=== PATIENT | male | born 1940 | race Caucasian/White ===

== ENCOUNTER 2019-08-11 08:12 | Emergency (ER) | payer MEDICARE, SELFPAY ==
[2019-08-11] VITALS (11 sets, daily range): BP systolic 76–108; BP diastolic 53–68; PULSE 108–119; RESP 17–28; TEMP 37.2; O2SAT 93–100; BMI 34.9
--- NOTE | 2019-08-11 08:15 | CT_ITS ---
STUDY: CT BRAIN WITHOUT CONTRAST REASON FOR EXAM: Male, 78 years old. LT SIDED WEAKNESS, LT FACIAL DROOP, FELL OUT OF BED STRIKING LT SIDE OF HEAD, HTN,DB RADIATION DOSAGE (If Supplied By Facility): CTDIvol = ( 44.99 ) mGy, DLP = ( 796.11 ) mGycm TECHNIQUE: Transaxial CT imaging of the brain was performed without administration of intravenous contrast material. Individualized dose optimization techniques were used for this CT. COMPARISON: No relevant priors. FINDINGS: Normal soft tissue structures. Normal calvarium. There is mild cerebral atrophy with widening of the extra-axial spaces and ventricular dilatation. There are areas of decreased attenuation within the white matter tracts of the supratentorial brain, consistent with microvascular disease changes. Normal basal ganglia and thalami. Normal brainstem. There is mild cerebellar atrophy. There is no intracranial hemorrhage. There are no findings of an acute ischemic infarction. There is mucoperiosteal inflammatory disease of the paranasal sinuses consistent with moderate chronic sinusitis. CT/Brain/Head without Contrast IMPRESSION: Chronic involutional changes of the brain. N.B. : The above information has been verbally conveyed by Pio Sanchez DO to La Elizabeth MD, on 08/11/2019 08:30:49 (ET). Electronically Signed: Pio Sanchez DO at 8:32 EST Tel , Service support ,
--- NOTE | 2019-08-11 08:15 | EKG12_ITS ---
Test Reason : STROKE Blood Pressure : / mmHG Vent. Rate : 124 BPM Atrial Rate : 129 BPM P-R Int : 000 ms QRS Dur : 126 ms QT Int : 306 ms P-R-T Axes : 000 043 -21 degrees QTc Int : 439 ms Atrial fibrillation with rapid ventricular response Right bundle branch block Possible Inferior infarct , age undetermined Abnormal ECG Confirmed by LUCI ARELLANO, CLIF ([id number]), assignment editor ARPIT DALLAS ([id number]) on 08/13/2019 10:03:06 AM Referred By: AJAY Confirmed By:CLIF VERMA MD
--- NOTE | 2019-08-11 08:16 | ED.DCSUM_ITS ---
History of Present Illness Chief Complaint: Neuro S/Sx Informant: Patient, Sales Merchandising Specialist Onset: Today Narrative: Patient presents via EMS with possible stroke. Patient states that he went to get a bed this morning and fell to the floor. He states he could not use his right leg. He actually states he felt like he was weak all over, but worse in the right leg. EMS noted left facial droop that improved just prior to arrival. Patient states he went to bed at 10:30 PM last night and was okay at that time. He was not up during the night at all. - Past Medical History (1) A-fib Status: Chronic (2) Borderline diabetes Status: Chronic (3) Hypertension Status: Chronic (4) CHF (congestive heart failure) Status: Chronic (5) Sleep apnea Status: Chronic (6) BPH (benign prostatic hyperplasia) Status: Chronic (7) High cholesterol Status: Chronic (8) Hx of appendectomy Status: Chronic Past Medical History - Allergies and Home Meds Allergies/Adverse Reactions: Allergies No Known Allergies Allergy (Verified 08/11/19 08:25) Primary Care Physician: Meño Steele [Primary Care Provider] - Lives: Spouse/ Significant Other Review of Systems General: Denies: Chills, Fever Cardiovascular: Denies: Chest pain, Palpitations Respiratory: Reports: Cough Gastrointestinal: Denies: Abdominal pain, Nausea, Vomiting Genitourinary: Denies: Dysuria Musculoskeletal: Denies: Extremity Pain Skin: Denies: Rash Neurological: Denies: Headache Endocrine: Denies: Polyuria, Polydipsia Allergy: Denies: Uticaria Physical Exam Inital Vital Signs reviewed: Yes General: Well nourished, Well developed ENT: Moist mucous membranes Neck: Supple Cardiovascular: Irregular, Tachycardia Respiratory: No distress, CTA bilaterally Abdomen: Soft, Nontender Extremities: Nontender Skin: Normal color Neurological: Alert, Oriented x3, - - No facial droop noted on exam at this time. Patient has mild right lower extremity weakness with leg falling to the bed. Upper extremity examination is unremarkable. Psychological: Normal affect Diagnostic/Tx/Re-eval Impressions Brain CT 08/11/19 08:15 IMPRESSION: Chronic involutional changes of the brain. N.B. : The above information has been verbally conveyed by Pio Sanchez DO to La Elizabeth MD, on 08/11/2019 08:30:49 (ET). Electronically Signed: Pio Sanchez DO at 8:32 EST Tel , Service support , ADDENDUM: 08/11/19 0839 IMPRESSION: Chronic involutional changes of the brain. N.B. : The above information has been verbally conveyed by Pio Sanchez DO to La Elizabeth MD, on 08/11/2019 08:30:49 (ET). Electronically Signed: Pio Sanchez DO at 8:32 EST Tel , Service support , Chest X-Ray 08/11/19 08:53 IMPRESSION: Left lower lobe airspace disease with small effusion Electronically Signed: Pio Sanchez DO at 9:04 EST Tel , Service support , 08/11/19 08:15 Brain/Head without Contrast [CT] Stat 08/11/19 08:53 Chest 1 View [RAD] Stat Laboratory Results 08/11/19 08/11/19 08/11/19 08:30 08:30 08:30 WBC 16.4 H RBC 4.33 L Hgb 12.6 L Hct 39.4 L MCV 91.0 MCH 29.1 MCHC 32.0 RDW Std Deviation 45.6 H RDW Coeff of Carisa 13.6 Plt Count 170 MPV 10.8 Immature Gran % (Auto) 0.700 Neut % (Auto) 87.1 H Lymph % (Auto) 3.2 L [place] % (Auto) 8.1 Eos % (Auto) 0.7 Baso % (Auto) 0.2 Absolute Neuts (auto) 14.3 H Absolute Lymphs (auto) 0.52 L Nucleated RBC % 0 Differential Comment SCANNED PT 18.9 H INR 1.6 APTT 35.4 Sodium 141 Potassium 4.1 Chloride 105 Carbon Dioxide 29.0 Anion Gap 7 BUN 24 H Creatinine 1.15 Estim Creat Clear Calc 52.90 Est GFR (MDRD) Af Amer 79 Est GFR (MDRD) Non-Af 65 BUN/Creatinine Ratio 20.9 H Glucose 190 H Lactic Acid Calcium 8.9 Troponin I < 0.015 Urine Color Urine Clarity Urine pH Ur Specific [place] Urine Protein Urine Glucose (UA) Urine Ketones Urine Occult Blood Urine Nitrite Urine Bilirubin Urine Urobilinogen Ur Leukocyte Esterase Urine RBC Urine WBC Ur Squamous Epith Cells Urine Bacteria Urine Mucus 08/11/19 08/11/19 08:30 08:50 WBC RBC Hgb Hct MCV MCH MCHC RDW Std Deviation RDW Coeff of Carisa Plt Count MPV Immature Gran % (Auto) Neut % (Auto) Lymph % (Auto) [place] % (Auto) Eos % (Auto) Baso % (Auto) Absolute Neuts (auto) Absolute Lymphs (auto) Nucleated RBC % Differential Comment PT INR APTT Sodium Potassium Chloride Carbon Dioxide Anion Gap BUN Creatinine Estim Creat Clear Calc Est GFR (MDRD) Af Amer Est GFR (MDRD) Non-Af BUN/Creatinine Ratio Glucose Lactic Acid 2.9 H* Calcium Troponin I Urine Color Yellow Urine Clarity Clear Urine pH 6.0 Ur Specific [place] 1.015 Urine Protein 30 H Urine Glucose (UA) Normal Urine Ketones 5 H Urine Occult Blood 25 H Urine Nitrite Negative Urine Bilirubin Negative Urine Urobilinogen Normal Ur Leukocyte Esterase Negative Urine RBC 0-5 SEEN Urine WBC 0-5 SEEN Ur Squamous Epith Cells 0 SEEN Urine Bacteria 0 SEEN Urine Mucus 0 SEEN - EKG Initial EKG Interpretation: Atrial Fibrillation - A. fib RVR at 124. Right bundle branch block noted. - Medical Decision Making Just after patient returned from CAT scan I received a phone call from radiology stating the CT looked normal. Family is now at bedside and able to provide more history. They do state that patient has had a cough recently. He does have a history of A. fib and is on Eliquis. Has had no prior stroke symptoms. Son states that he received a call at 6:53 AM that the patient had fallen when attempting to get out of bed. We believe last known well to still be 10:30 PM last evening. Son does agree that the facial droop that was present at the home is now resolved. Test results are discussed with patient and family. I had an accepting physician at [facility] very quickly after patient's arrival, however family was not sure that they wanted transferred. There is a significant delay in waiting for multiple family members to arrive and make a decision. At this time they d o request transfer to [facility]. We will call [facility] and transport at this time. Patient's test results do indicate left lower lobe pneumonia. His blood pressure responds to fluid boluses. At this time his map is 77. He has been ordered Rocephin and Zithromax for his pneumonia. - Critical Care Time Critical care time (excluding procedures): 30-74 minutes ED Disposition - Plan for ED Patient: Disposition: [facility] Diagnosis: CVA (cerebral vascular accident), Pneumonia Referrals: Meño Steele [Primary Care Provider] -
[2019-08-11] MEDS: 0.9% Normal Saline 1,000 ML 100 ML IV (08:29)
[2019-08-11 08:43] LABS: Absolute Lymphocyte Count 0.52 X10^3/uL (0.83-4.51); Absolute Neutrophil Count 14.3 X10^3/uL (2.0-7.7); Basophil# 0.03 X10^3/uL; Basophil% 0.2 % (0-1); Eosinophil# 0.11 X10^3/uL; Eosinophils% 0.7 % (0-5); Hematocrit 39.4 % (40-54); Hemoglobin 12.6 g/dL (13.0-16.5); Lymphocyte # 0.52 X10^3/ul (4.0); Lymphocyte % 3.2 % (19-41); Mean Corpuscular Hgb 29.1 pg (27.0-32.0); Mean Platelet Vol. 10.8 fl (6.2-12.0); Monocyte# 1.33 X10^3/uL; Monocyte% 8.1 % (0-10); NRBC Flagged by Analyzer 0 % (0-5); Neutrophil # 14.28 X10^3/uL (2.7-7.7); Neutrophil % 87.1 % (47-70); POSITIVE DIFFERENTIAL YES; Platelet Count 170 K/mm3 (150-450); RBC Distribution Width CV 13.6 % (11.6-14.6); RBC Distribution Width SD 45.6 fl (35.1-43.9); Red Blood Count 4.33 M/mm3 (4.6-6.2); White Blood Count 16.4 K/mm3 (4.4-11.0)
[2019-08-11 08:44] LABS: Differential Indicated SCAN CRITERIA MET
[2019-08-11 08:48] LABS: International Normalized Ratio 1.6; Prothrombin Time (Protime)PT. 18.9 SECONDS (11.7-14.9)
[2019-08-11 08:49] LABS: Partial Thromboplast Time 35.4 Seconds (24.1-36.2)
[2019-08-11 08:53] LABS: Bacteria 0 SEEN /hpf (None Seen); Mucous, Urine 0 SEEN /hpf (<or=2+); Squamous Epithelial Cells - UA 0 SEEN /hpf (0-5)
--- NOTE | 2019-08-11 08:53 | RAD_ITS ---
STUDY: X-RAY CHEST REASON FOR EXAM: Male, 78 years old. SOB TECHNIQUE: Single AP portable view of the chest. COMPARISON: None. FINDINGS: Lungs are adequately inflated. Left lower lobe airspace disease is noted with small effusion. There is mild cardiac enlargement. Normal mediastinum and jonny. Normal visualized pulmonary arteries. Normal visualized aortic arch and descending thoracic aorta. Normal visualized thoracic spine. Normal visualized ribs, clavicles, and shoulders. There is no demonstrated abnormality of the visualized soft tissue structures of the upper abdomen. RAD/Chest 1 View IMPRESSION: Left lower lobe airspace disease with small effusion Electronically Signed: Pio Sanchez DO at 9:04 EST Tel , Service support ,
[2019-08-11 08:55] LABS: Color, Urine Yellow (Yellow); Glucose, Dipstick Normal (Normal); Ketone-Dipstick 5 mg/dl (Negative); Leukocyte Esterase-Dipstick Negative /ul (Negative); Nitrite-Dipstick Negative (Negative); Occult Blood-Urine 25 /ul (Negative); Protein-Dipstick 30 mg/dl (Negative); Specific Gravity, Urine 1.015 (1.002-1.030); Urine Bilirubin Dipstick Negative (Negative); Urine Clarity Clear (Clear); Urine Urobilinogen Normal (Normal)
[2019-08-11 09:02] LABS: Anion Gap 7 (5-15); BUN 24 mg/dL (7-18); BUN/Creat Ratio 20.9 RATIO (10-20); Calcium,Total 8.9 mg/dL (8.5-10.1); Chloride 105 mmol/L (98-107); Creatinine, Serum 1.15 mg/dL (0.70-1.30); EST Glomerular Filtration Rate 65 mL/min (>60); Est Glom Filt Rate - Afr Amer 79 mL/min (>60); Glucose 190 mg/dL (74-106); Potassium 4.1 mmol/L (3.5-5.1); Sodium Level 141 mmol/L (136-145)
[2019-08-11 09:03] LABS: Lactic Acid 2.9 mmol/L (0.4-1.9)
[2019-08-11 09:03] LABS: Red Blood Cells-Urine 0-5 SEEN /hpf (0-5); White Blood Cells 0-5 SEEN /hpf (0-5)
[2019-08-11 09:05] LABS: Differential Comment SCANNED
--- NOTE | 2019-08-11 09:08 | ED.RN ---
lactic 2.[address] lab dr kelly aware
--- NOTE | 2019-08-11 09:20 | ED.RN ---
called pharmacy for ATB's.
[2019-08-11] MEDS: Ceftriaxone 1 GM/50 ML BAG IV (09:40)
[2019-08-11] MEDS: 0.9% Normal Saline 1,000 ML 999 ML IV ×2 (10:01→10:37)
[2019-08-11 12:36] LABS: Reflex Lactate? Y
== END 2019-08-11 10:43 | disposition short-term general hospital (02) ==
PROVIDERS: Emergency Provider Emergency Medicine; Family Provider Internal Medicine; PCP Internal Medicine
DX: I63.9 Cerebral infarction, unspecified (principal); J18.9 Pneumonia, unspecified organism; E78.00 Pure hypercholesterolemia, unspecified; G47.30 Sleep apnea, unspecified; I45.10 Unspecified right bundle-branch block; I48.91 Unspecified atrial fibrillation; I11.0 Hypertensive heart disease with heart failure; N40.0 Benign prostatic hyperplasia without lower urinary tract symptoms; I50.9 Heart failure, unspecified; R73.03 Prediabetes
CPT/HCPCS: 70450; 71045; 80048; 81001; 83605; 84484; 85025; 85610; 85730; 87040; 93005; 96361; 96365; 96368; 99285; J7030; J7040